=== PATIENT | male | born 1970 | race Caucasian/White ===

== ENCOUNTER 2019-01-12 13:26 | Emergency (ER) | payer MEDICARE, BC ==
[~2019-01-12 13:26] MED LIST: CIPRO XR500 M1 OR; CLONIDINE0.2 MG OR; COLCHICINE0.6 MG PO; DIALYVIT2 PO; DIOVAN160 MG OR; HUMALOG100 MG/ML SC; HYDROCO/APAP1 TA9 OR; LIPITOR20 MG PO; LIPITOR40 MG OR; MINOCYCLINE100 MG PO; PHOSLO667 MG OR; PHOSLO667 MG PO; PROCARDIA XL30 MG OR; PROCARDIA XL60 MG PO; RENAL OR; SENSIPAR90 MG OR
[2019-01-12 13:37] VITALS: BP 0/0
== END 2019-01-12 13:37 | disposition expired ==
LOC: EDBD 13:26 → ED 13:26
PROC: 5A12012 Performance of Cardiac Output, Single, Manual (ICD-10-PCS; principal; 2019-01-12)
PROC: 0BH17EZ Insertion of Endotracheal Airway into Trachea, Via Natural or Artificial Opening (ICD-10-PCS; 2019-01-12)
DX: I46.9 Cardiac arrest, cause unspecified (principal); E11.9 Type 2 diabetes mellitus without complications; I10 Essential (primary) hypertension